=== PATIENT | female | born 1965 | race Hispanic/Latino ===

== ENCOUNTER 2020-01-05 11:47 | Inpatient (IN) | payer BC ==
[~2020-01-05] VITALS: Ht 160 cm; Wt 59.0 kg
[2020-01-05] MEDS ORDERED: ONDANSETRON HCL 4 MG/2 ML VIAL ONE ×2 (11:57→13:02)
[2020-01-05] MEDS ORDERED: SODIUM CHLORIDE 0.9% 1000ML 1,000 ML IV ONE (11:57)
[2020-01-05] MEDS ORDERED: FENTANYL CITRATE PF 50 MCG/1 ML 2ML VIAL ONE ×2 (11:58→13:05)
[2020-01-05 12:16] LABS: BASOPHILS % (AUTO) 0.2 % (0.0-5.0); EOSINOPHILS % (AUTO) 0.9 % (0.0-8.0); HEMATOCRIT 44.2 % (36-48); LYMPHOCYTES % (AUTO) 26.7 % (21.0-51.0); MEAN CORPUSCULAR HEMOGLOBIN 31.9 pg (27.0-33.0); MEAN CORPUSCULAR HGB CONC 33.3 g/dL (32.0-36.0); MEAN CORPUSCULAR VOLUME 95.9 fL (79-99); MONOCYTES % (AUTO) 6.8 % (3.0-13.0); PLATELET COUNT (AUTO) 597 K/uL (130-400); RED BLOOD CELL COUNT(AUTO) 4.61 MIL/uL (4.00-5.50); RED CELL DISTRIBUTION WIDTH 14.2 % (11.0-15.5); WHITE BLOOD COUNT (AUTO) 11.6 K/uL (4.8-10.8)
[2020-01-05 12:29] LABS: INR 0.94 (0.85-1.15); PARTIAL THROMBOPLASTIN TIME 24.1 SEC (26.3-35.5); PROTHROMBIN TIME 10.2 SEC (9.6-11.6)
[2020-01-05 12:33] LABS: CREATININE 0.7 mg/dL (0.5-1.5); POTASSIUM 3.5 mmol/L (3.5-5.1)
[2020-01-05 12:37] LABS: ALBUMIN 3.9 g/dL (3.5-5.0); BILIRUBIN,DIRECT 0.2 mg/dL (0.0-0.3); BILIRUBIN,TOTAL 0.5 mg/dL (0.2-1.0); TOTAL PROTEIN, SERUM 7.6 g/dL (6.0-8.3)
[2020-01-05] MEDS ORDERED: HYDRALAZINE HCL 20 MG/ML VIAL IV PRN (14:30)
[2020-01-05] MEDS ORDERED: MORPHINE SULFATE 2 MG/ML 1ML SYG IV PRN (14:30)
[2020-01-05] MEDS ORDERED: ONDANSETRON HCL 4 MG/2 ML VIAL IV PRN (14:30)
[2020-01-05] MEDS ORDERED: MORPHINE SULFATE 4 MG/1ML SYG IV PRN (14:30)
[2020-01-05 15:15] VITALS: BP 106/65
[2020-01-05] MEDS ORDERED: OMEP40CA13 PO (17:30)
[2020-01-05 17:49] LABS: PHOSPHORUS 6.5 mg/dL (2.5-4.9)
[2020-01-05] MEDS: SODIUM CHLORIDE 0.9% 1000ML 1,000 ML IV SCH (18:00)
[2020-01-05] MEDS ORDERED: PHENOL 177 ML BOTTLE PO PRN (18:30)
[2020-01-05 19:00] VITALS: BP 101/59
[2020-01-05] MEDS ORDERED: SUCR1TAB2 PO (19:50)
--- NOTE | 2020-01-05 20:05 | NUR ---
MEDS REPORT RECEIVED FROM NIKKI GO. NURSE'S ROUNDS DONE. PT REQUESTED TO GO TO THE BATHROOM. SUCTION CLAMMED AND ASSISTED PT BY PCP TO THE RESTROOM. PT COMPLAINTS OF PAIN ON HER THROAT FROM NGT. DUE MEDS ADMINISTERED.THROAT SPRAY ADMINISTERED FOR PAIN. PT TOLERATED MEDS WELL. PLACED BACK ON LIS. KEPT NPO. KEPT COMFORTABLE WITH HOB ELEVATED. CALL LIGHT WITHIN REACH. WILL RE-ASSESS PT.
[2020-01-05] MEDS ORDERED: FAMOTIDINE/PF 20 MG/2 ML VIAL IV SCH (21:00)
--- NOTE | 2020-01-05 21:15 | NUR ---
REPORT REPORT GIVEN TO NIKKI ANAND. ENDORSING PT FOR MORE CARE AND MANAGEMENT.
[2020-01-06] VITALS: BP 91/59
[2020-01-06] MEDS: SODIUM CHLORIDE 0.9% 1000ML 1,000 ML IV SCH ×2 (01:21→14:36)
--- NOTE | 2020-01-06 01:26 | NUR ---
PATIENT COMPLAINING OF ABDOMINAL PAIN ON A SCALE OF ONE TO TEN AT NINE, PAGED CHAUNCEY JACKSON VIA ANSWERING SERVICE AWAITING RETURN CALL.
--- NOTE | 2020-01-06 01:42 | NUR ---
CAHUNCEY JACKSON RETURNED THE CALL, INFORMED HER OF PATIENT'S COMPLAIN OF ABDOMINAL PAIN. I MADE HER AWARE, PATIENT ALLERGIC TO MORPHINE, ALSO INFORMED HER PATIENT HAS NGT TO LIS. CHAUNCEY FAUSTP ASKED WHAT IVP MEDICATION SHE HAS RECEIVED, CHECKED PREVIOUS MEDICATIONS ADMINISTERED IN ER, INFORMED HER FENTANYL 100 MC G TWICE IVP. I RECEIVED ORDERS FOR TORADOL 30 MG IVP NOW.
[2020-01-06] MEDS ORDERED: KETOROLAC TROMETHAMINE 30MG/ML IV SCH (01:45)
[2020-01-06] MEDS ORDERED: KETOROLAC TROMETHAMINE 30MG/ML ONE (01:46)
[2020-01-06] MEDS ORDERED: FAMOTIDINE/PF 20 MG/2 ML VIAL IV SCH (03:25)
[2020-01-06] MEDS ORDERED: FAMOTIDINE/PF 20 MG/2 ML VIAL IV ONE (03:29)
[2020-01-06 03:45] LABS: BASOPHILS % (AUTO) 0.4 % (0.0-5.0); EOSINOPHILS % (AUTO) 2.4 % (0.0-8.0); HEMATOCRIT 32.2 % (36-48); LYMPHOCYTES % (AUTO) 29.3 % (21.0-51.0); MEAN CORPUSCULAR HEMOGLOBIN 31.9 pg (27.0-33.0); MEAN CORPUSCULAR HGB CONC 32.6 g/dL (32.0-36.0); MEAN CORPUSCULAR VOLUME 97.9 fL (79-99); MONOCYTES % (AUTO) 7.6 % (3.0-13.0); NEUTROPHILS % (AUTO) 60.2 % (40.0-77.0); PLATELET COUNT (AUTO) 395 K/uL (130-400); RED BLOOD CELL COUNT(AUTO) 3.29 MIL/uL (4.00-5.50); RED CELL DISTRIBUTION WIDTH 14.2 % (11.0-15.5); WHITE BLOOD COUNT (AUTO) 6.7 K/uL (4.8-10.8)
[2020-01-06 04:00] VITALS: BP 101/61
[2020-01-06 04:23] LABS: ALBUMIN 2.5 g/dL (3.5-5.0); BILIRUBIN,TOTAL 0.4 mg/dL (0.2-1.0); CREATININE 0.6 mg/dL (0.5-1.5); POTASSIUM 3.4 mmol/L (3.5-5.1); TOTAL PROTEIN, SERUM 5.3 g/dL (6.0-8.3)
[2020-01-06] MEDS ORDERED: LIDOCAINE HCL-MPF 1% 2ML VIAL IJ PRN (07:45)
[2020-01-06] MEDS ORDERED: POTASSIUM CHLORIDE 20MEQ/100ML 100 ML IV PRN (07:45)
[2020-01-06 08:00] VITALS: BP 99/56
[2020-01-06] MEDS ORDERED: ENOXAPARIN SODIUM 40 MG/0.4 ML SYRINGE SQ SCH (09:00)
[2020-01-06 11:54] VITALS: BP 101/61
--- NOTE | 2020-01-06 12:04 | NUR ---
RD NOTIFICATION Pt admitted with SBO. History of Jejunal Ulcer Repair, Grave's Dz, Gastric Bypass (2018). Pt NPO with NGT to suction. LBM x 1 week ago. Elevated LFT's. 1) Recommend continue NPO 2) Recommend to consider Altered means nutrition if SBO does not resolve within 3-5 days with NGT Suction 3) RD to f/u with Malnutrition/Post-Gastric Bypass assessment Please notify as additional nutrition concerns arise. RD to continue to monitor. Addendum: 01/06/20 at [address] Amended: Links added.
--- NOTE | 2020-01-06 13:40 | NUR ---
TRANSFER RECEIVED A CALL FROM DR. MOORE, THE ATTENDING MD STATING THAT HE SPOKE WITH DR. GIBSON FROM [facility] ([facility] IN [place]. HE HAS ACCEPTED THE PATIENT THAT HOSPITAL AND NEEDS THE PATIENT TRANSFERRED. PLACED A CALL TO [facility] @ [phone] SPOKE WITH MARITA, INSURANCE PLAN SPECIALIST, GAVE HER PERTINENT INFO, SHE STATED SHE WILL CALL ME BACK AFTER CONSULTING WITH Addendum: 01/06/20 at 1358 by DEONTE PEREIRA RN RN MARITA WILL CALL BACK AFTER CONSULTING WITH DR. GIBSON
[2020-01-06] MEDS ORDERED: FENTANYL CITRATE PF 50 MCG/1 ML 2ML VIAL IVP SCH (15:30)
[2020-01-06 16:00] VITALS: BP 93/63
--- NOTE | 2020-01-06 16:20 | NUR ---
REPORT GIVEN TO STAFF NURSE AT [facility] IN [place] . [place]. PT TO BE TRANSFER FOR HIGHER LEVEL OF CARE PER REQUEST PER DR. BOCANEGRA HER DR IN [place]. EMS WAS CALLED FOR TRANSFER .
--- NOTE | 2020-01-06 18:00 | NUR ---
EMS STAFF HERE , REVIEW HX, AND DIRECTIONS OF PT GOING TO [place]. PT NPO STATUS, LEAVING WITH A NG . SECURE TO HER RT NARE, AND IVF . OF .9NS VIA . RATE FLOW .AT 100 CC HR. .. DISCHARGE TRANFER . SUMMARY WAS GIVEN TO PT. AND IS AWARE OF TRANSFER. ORDERS PER DR. MOORE,, PT CONNECT .FAMILY. OF DISCHARGE , . TRANSFER.
--- NOTE | 2020-01-06 18:22 | NUR ---
FOR TRANSFER TO HIGHER LEVEL OF CARE [facility] Addendum: 01/06/20 at 1824 by MICHAEL MENDOZA RN CM Amended: Links added.
--- NOTE | 2020-01-06 18:50 | NUR ---
CALLED PLACED TO [facility] .STAFF , NO REGARDING PENDING . ARRIVAL TO THEIR HOSPITAL.
== END 2020-01-06 18:00 | disposition short-term general hospital (02) | DRG 390 ==
LOC: EDH 11:47 → EDHIP 14:21 → 3DH 15:02 → 3CH 17:32
PROVIDERS: ADMIT Internal Medicine; ATTEND Internal Medicine
PROC: 0D9670Z Drainage of Stomach with Drainage Device, Via Natural or Artificial Opening (ICD-10-PCS; principal; 2020-01-05)
DX: K56.601 Complete intestinal obstruction, unspecified as to cause (principal); K44.9 Diaphragmatic hernia without obstruction or gangrene; E05.00 Thyrotoxicosis with diffuse goiter without thyrotoxic crisis or storm; Z90.710 Acquired absence of both cervix and uterus; Z98.891 History of uterine scar from previous surgery; D72.829 Elevated white blood cell count, unspecified; Z90.49 Acquired absence of other specified parts of digestive tract; Z98.84 Bariatric surgery status; Z87.11 Personal history of peptic ulcer disease; Z88.5 Allergy status to narcotic agent
CPT/HCPCS: 36415; 74021; 74176; 76705; 80048; 80053; 80076; 82550; 83690; 83735; 84100; 84145; 84484; 85025; 85610; 85730; 93005; 99291; G0378; J1650; J1885; J2405; J3010; J3490; J7030